=== PATIENT | male | born 1985 | race Caucasian/White ===

== ENCOUNTER 2019-11-15 20:13 | Emergency (ER) | payer SELFPAY ==
[2019-11-15 20:28] VITALS: BP 133/81; PULSE 102; RESP 18; TEMP 37.9; O2SAT 98; BMI 26.2
[2019-11-15 20:41] VITALS: BP 126/73; PULSE 94; RESP 16; O2SAT 98
--- NOTE | 2019-11-15 20:48 | XR_ITS ---
WS: [id number] LUMBAR SPINE: 3 VIEWS TECHNIQUE: AP, lateral and L5-S1 spot. HISTORY: fall COMPARISON: None available. Mild LEFT curvature lumbar spine. Posterior alignment is normal. No fracture. No loss of disc space or vertebral body height. SI joints are symmetric bilaterally. No soft tissue abnormalities. XR/XR lumbar spine 2-3V* [id number] IMPRESSION: Mild LEFT convex curvature. No fracture.
--- NOTE | 2019-11-15 20:49 | ED_ITS ---
HPI - Fall General: Chief Complaint: Fall Stated Complaint: fall Time Seen by Provider: 11/15/19 20:45 Source: patient Mode of arrival: ambulatory Limitations: no limitations History of Present Illness: HPI Narrative: 34-year-old male states he slipped in his garage this morning and fell on a propane tank. He states that a propane tank hit him in the lower back and has had pain since then. He states it is worsened throughout the day and is mainly on the lower right side. He states pain is sharp in nature and rates it a 7 out of 10. Patient is able to ambulate. States it is improved with rest and worsened with ambulation. MD complaint: fall Onset (ago): hour(s) Fall from: standing Place fall occurred: home Loss of consciousness: None Associated symptoms-after fall: Denies abdominal pain, chest pain, headache(s) or neck pain Review of Systems Const: Denies: fever(s), chills, body aches or change in appetite Eyes: Denies: blurry vision or eye discomfort ENMT: Denies: throat pain or dental pain Card: Denies: chest pain Resp: Denies: dyspnea GI: Denies: abdominal pain, nausea, vomiting or diarrhea : Denies: dysuria Musc: Denies: neck pain or back pain Skin/Breast: Denies: rash Neuro: Denies: headache(s) Psych: Denies: depression Abdirashid/Lymph: Denies: easy bruising All/Imm: Denies: urticaria PFSH ED PFSH: Social History Smoking and tobacco status: former smoker Physical Exam Const: COMMON NORMALS: no acute distress, patient oriented x3 and healthy appearing HENMT: COMMON NORMALS: normocephalic and atraumatic HEAD & SCALP: normocephalic and atraumatic Eye: COMMON NORMALS: Equal, round and reactive pupils present and EOMs intact bilaterally PUPIL: Yes Equal, round and reactive pupils present Neck/C-Spine: COMMON NORMALS: full ROM and supple Chest: COMMONS NORMALS: normal inspection of the chest and normal palpation of entire chest wall Resp: COMMON NORMALS: normal respiratory effort, No retractions, No use of accessory muscles and clear to auscultation bilaterally AUSCULTATION: clear to auscultation bilaterally Cardio: COMMON NORMALS: regular rate, regular rhythm and No murmurs present (Cardio) RATE: regular rate RHYTHM: regular rhythm GI: COMMON NORMALS: Normal to inspection, nondistended, normoactive bowel sounds present, Soft to palpation, non-tender and no masses PALPATION: Yes Soft to palpation Back/Pelvis: OTHER: Tender over right lower lumbar region. No midline tenderness. Extremity: COMMON NORMALS: normal to inspection and full ROM Neuro: COMMON NORMALS: patient oriented x3, moves all extremities and no focal motor deficits Psych: COMMON NORMALS: mental status grossly normal, Normal thought process present and cooperative THOUGHT PROCESS: Normal thought process present Skin: COMMON NORMALS: no rashes or lesions noted and no wounds GENERAL SKIN EXAM: no rashes or lesions noted Course Vital Signs: Vital signs: Vital Signs Temperature 100.2 F H 11/15/19 20:28 Pulse Rate 89 11/15/19 21:32 Respiratory Rate 16 11/15/19 21:32 Blood Pressure 136/74 11/15/19 21:32 Pulse Oximetry 98 11/15/19 21:32 MDM - Fall MDM Narrative: Medical decision making narrative: Patient presents here with lumbar contusion from a fall. X-ray shows no fracture and his exam here is benign. Patient is stable for discharge and is to follow-up with his primary care doctor in 3 to 5 days and return if worsening. Imaging Data^: xr lumbar spine: Attestation: I personally reviewed and interpreted this imaging study as follows: My impression: no acute abnormality Discharge Plan Discharge Patient Disposition: Home, Self-Care Clinical Impression: Lumbar contusion Qualifiers: Encounter type: initial encounter Qualified Code(s): S30.0XXA - Contusion of lower back and pelvis, initial encounter Fall Qualifiers: Encounter type: initial encounter Qualified Code(s): W19.XXXA - Unspecified fall, initial encounter Condition: Stable Prescriptions: New Robaxin-750 750 mg tablet 750 mg PO Q6H Qty: 30 RF: 0 Naprosyn 500 mg tablet 500 mg PO BID PRN (Reason: pain) Qty: 20 RF: 0 No Action Multiple Vitamins Tablet 1 tab PO DAILY RF: 0 biotin 5,000 mcg Tablet,Disintegrating 10,000 mcg PO DAILY RF: 0 Discharge Orders: Discharge Order (Routine); Ordered 11/15/19 Ordered By: Jevon Martinez Discharge Diet: Advance as tolerated Discharge Activity: Resume usual activity Patient Instructions: Low Back Strain (ED) Coding Level of Care Code ED Refrigeration Manager for Chg Fwd Exam Comprehensive
[2019-11-15] MEDS: HYDROcodone-acetaminophen 7.5-325 mg Tablet 1 TAB PO (21:30)
[2019-11-15 21:32] VITALS: BP 136/74; PULSE 89; RESP 16; O2SAT 98
== END 2019-11-15 21:40 | disposition home or self-care (01) ==
PROVIDERS: Emergency Provider Emergency Medicine
DX: S30.0XXA Contusion of lower back and pelvis, initial encounter (principal); W01.198A Fall on same level from slipping, tripping and stumbling with subsequent striking against other object, initial encounter; Z87.891 Personal history of nicotine dependence
CPT/HCPCS: 12345; 72100; 99282; 99283

== ENCOUNTER 2019-11-29 15:17 | Emergency (ER) | payer SELFPAY ==
[2019-11-29 15:32] VITALS: BP 105/72; PULSE 125; RESP 18; TEMP 37.7; O2SAT 98; BMI 25.1
--- NOTE | 2019-11-29 17:26 | USCV_ITS ---
Lemuel Phillips Age: 34 Gender: M : 1985 Exam Date: 11/29/2019 19:18 Ordering Phys: Esteban May Technologist: Jeffry Hernandez Exam Location: [facility] [place] Indication: RT FOURT DIGIT BLUE Findings NORMAL TRI PHASIC FLOW IN RT RAD AND ULNAR, THERE IS NO FLOW IN RT FORTH DIGIT COMPARED TO REST OF DIGITS. Normal Doppler waveforms and Doppler velocities in these arteries Conclusions No Doppler flow signals in the right fourth digit, suggesting occlusion of the artery Normal Doppler flow pattern in the right ulnar, radial, palmar arch and the rest of the digital arteries Dr Jina Cat MD [facility] (Electronically Signed) Final Date: 30 Nov 2019 19:46 S
--- NOTE | 2019-11-29 17:28 | XR_ITS ---
WS: [id number] RIGHT HAND: 3 VIEW(S) TECHNIQUE: PA, oblique and lateral. HISTORY: pain in right 4th digit COMPARISON: None available. No acute fracture or dislocation. No soft tissue or bone abnormality. XR/XR hand RT min 3V* [id number] IMPRESSION: Normal RIGHT hand.
--- NOTE | 2019-11-29 17:29 | ED_ITS ---
HPI - General Adult General: Chief complaint: General Medical Stated complaint: RIGHT RING FINGER INJURY Time Seen by Provider: 11/29/19 17:26 History of Present Illness: HPI narrative: Patient is a 34-year-old male comes to the ED with pain and right ring finger. Patient has a past medical history of factor V Leiden. patient states that 3 days ago he was having a dream that something was biting his right ring finger and when he woke up he noticed his finger had some bruising on it. Patient states that he has a dog but he sleeps with the door closed and the dog was not able to access his room at night. He denies any other event or injury or accident that could have caused pain and bruising in right ring finger. Over the past couple days the finger is gotten more painful and has become more blue and the tip of the finger is cold. He describes the pain as throbbing and then having episodes. Sharp burning pain on his finger. The skin today is blue and then has some whiteness to it as well. He is taken ibuprofen to help with pain. Associated symptoms: Deny chest pain, dyspnea, headache(s), nausea, rash, palpitations or vomiting Review of Systems Const: Denies: fever(s), chills or fatigue Eyes: Denies: change in vision or eye discomfort ENMT: Denies: throat pain, odynophagia, nasal discharge or nasal congestion Card: Denies: chest pain, palpitations, edema, swelling of feet/ankles, dyspnea on exertion or orthopnea Resp: Denies: dyspnea, productive cough or non-productive cough GI: Denies: abdominal pain, nausea, vomiting, diarrhea, constipation or hematochezia : Denies: flank pain, difficulty urinating, dysuria or hematuria Musc: Reports: extremity pain (right ring finger-pain, ecchymosis and cold from the DIP joint to the tip of finger.); Denies: neck pain, back pain or extremity swelling Skin/Breast: Denies: rash or new lesions Neuro: Denies: headache(s), numbness in extremities or weakness in extremities [facility] ED PFSH: Medical History (Updated 11/29/19 @ 20:36 by RUBEN Dahl) Factor V Leiden Social History Smoking and tobacco status: former smoker Physical Exam Const: COMMON NORMALS: patient oriented x3 and alert GENERAL APPEARANCE: cooperative and comfortable HENMT: COMMON NORMALS: normocephalic HEAD & SCALP: normocephalic MOUTH: Normal oral and palatal mucosa present THROAT: posterior oropharynx normal and uvula midline Eye: COMMON NORMALS: Equal, round and reactive pupils present PUPIL: Yes Equal, round and reactive pupils present Neck/C-Spine: COMMON NORMALS: supple GENERAL: Yes normal visual inspection Resp: COMMON NORMALS: normal respiratory effort, No retractions, No use of accessory muscles and clear to auscultation bilaterally AUSCULTATION: clear to auscultation bilaterally Cardio: COMMON NORMALS: regular rate, regular rhythm, S1 normal heart sound present, S2 normal heart sound present, No gallops present (Cardio), No clicks present (Cardio), No murmurs present (Cardio) and Peripheral pulses 2+ throughout RATE: regular rate RHYTHM: regular rhythm HEART SOUNDS: S1 normal heart sound present and S2 normal heart sound present PERIPHERAL PULSES: Peripheral pulses 2+ throughout GI: COMMON NORMALS: Normal to inspection, nondistended, normoactive bowel sounds present, Soft to palpation, non-tender and no masses PALPATION: Yes Soft to palpation : COMMON NORMALS: Yes no CVA tenderness BLADDER/KIDNEY EXAM: Yes no CVA tenderness Back/Pelvis: COMMON NORMALS: no CVA tenderness Extremity: COMMON NORMALS: no pedal edema GENERAL: Yes normal exam except as noted RIGHT UPPER EXTREMITY: Yes hand & digits (Right ring finger(4th digit)) Right hand and digits: Yes inspection (Finger has ecchymosis and is white from the DIP joint to the finger. Nail has ecchymosis under it as well.), Yes palpation (tender from dip joint to tip-cool to touch), Yes ROM exam (full) and Yes neurovascular exam (finger tip is cold and cap refill is abnormal) Neuro: COMMON NORMALS: patient oriented x3 and moves all extremities SENSORIUM/ORIENTATION: Yes alert Skin: COMMON NORMALS: no rashes or lesions noted (except for what is described on right ring finger in extremity section above.) GENERAL SKIN EXAM: no rashes or lesions noted (except for what is described on right ring finger in extremity section above.) and dry skin Course Consultations: Consultation #1: I contacted Dr. Colón the vascular surgeon at [facility] in [facility]. I discussed the patient's case and ultrasound findings. Dr. Colón said he will see patient at his clinic tomorrow morning at 8:30 AM. He told me to start patient on an anticoagulant. Vital Signs: Vital signs: Vital Signs Temperature 100 F H 11/29/19 15:32 Pulse Rate 74 11/29/19 18:41 Respiratory Rate 18 11/29/19 20:20 Blood Pressure 128/95 11/29/19 18:41 Pulse Oximetry 98 11/29/19 20:20 MDM - General Adult MDM Narrative: Medical decision making narrative: Patient is a 34-year-old female who comes to the ED with right fourth digit pain. Patient has a past medical history of factor V Leiden. Patient's fourth digit on right hand was blue and cold. cap Refill was abnormal. X-ray right hand showed no acute findings. Arterial duplex ultrasound of upper right extremity showed no arterial blood flow to the fourth digit. All other blood throughout hands and fingers was normal. I contacted vascular surgeon Dr. Colón at [facility] in [facility] and told about the patient's case. He recommended me putting patient on anticoagulant and he will see him in his clinic tomorrow at 8:30 AM. Patient was given all contact information for Dr. Colón office. Patient was given a shot of Lovenox while here in the ED and sent home with a prescription for Lovenox. Patient will follow-up at Dr. Colón's clinic tomorrow at 8:30 AM. Imaging Data^: US Vascular: Attestation: I personally reviewed and interpreted this imaging study as follows: Radiologist's impression: CV arterial duplex of upper right extremity showed no arterial flow to ring finger of right hand. All other major arteries and blood flow throughout the rest of the fingers and hand were patent and normal. Xray Ortho: Attestation: I personally reviewed and interpreted this imaging study as follows: My impression: Right hand x-ray?no acute fracture findings seen. Pending final radiology report. Discharge Plan Discharge Patient Disposition: Home, Self-Care Clinical Impression: Digital arterial occlusive disease Condition: Stable Prescriptions: New Lovenox 80 mg/0.8 mL syringe 80 mg SUBCUT Q12H Qty: 8 RF: 0 No Action multivitamin [Multiple Vitamins] Tablet 1 tab PO DAILY RF: 0 biotin 5,000 mcg Tablet,Disintegrating 10,000 mcg PO DAILY RF: 0 Discharge Orders: Discharge Order (Routine); Ordered 11/29/19 Ordered By: Esteban May Discharge Diet: Regular Discharge Activity: Resume usual activity Activity Restrictions/Additional Instructions: Go to Dr. Colón tomorrow at 8:30 AM. Address is [address] [place] [id number]. Phone number [phone]. Also sending you home with a prescription for Lovenox. Discussed with the doctor tomorrow anticoagulation medication options. I can only supply you with a prescription for 5 days worth of Lovenox we will need to see PCP for additional prescriptions or doctor tomorrow might give you a prescription for an anticoagulant. Follow- up with your PCP within a week for reevaluation. Discharge Date/Time: 11/29/19 20:32 Coding Level of Care Code ED Garbage Pick Up Worker for Joe Quintero Exam Comprehensive
[2019-11-29] MEDS: HYDROcodone-acetaminophen 7.5-325 mg Tablet 1 TAB PO (17:51)
[2019-11-29 18:41] VITALS: BP 128/95; PULSE 74; RESP 18; O2SAT 98
[2019-11-29 20:20] VITALS: RESP 18; O2SAT 98
[2019-11-29] MEDS: enoxaparin 80 mg/0.8 mL Syringe SUBCUT (20:20)
[2019-11-29] MEDS: morphine 4 mg/mL SDV 1 mL IM (20:20)
== END 2019-11-29 20:32 | disposition home or self-care (01) ==
PROVIDERS: Emergency Provider Physician Assistant
DX: I70.90 Unspecified atherosclerosis (principal); Z87.891 Personal history of nicotine dependence; D68.51 Activated protein C resistance
CPT/HCPCS: 12345; 73130; 93931; 96372; 99281; 99283; J1650; J2270

== ENCOUNTER 2019-11-30 14:38 | Emergency (ER) | payer SELFPAY ==
[2019-11-30 15:15] VITALS: BP 92/58; PULSE 113; RESP 18; TEMP 37.2; O2SAT 97; BMI 25.1
[2019-11-30] MEDS: sodium chloride 0.9% 1,000 ML 999 ML IV (16:30)
--- NOTE | 2019-11-30 16:33 | W.ED.EXTPRO ---
HPI - Extremity Problem General: Chief complaint: Extremity Problem,Nontraumatic Stated complaint: decreased bloodflow to fingers Time Seen by Provider: 11/30/19 16:09 History of Present Illness: HPI Narrative: This patient is a 34-year-old male who presents today with blue painful fingers on his right hand. He was seen here yesterday evening with the same complaint but at that time it was only his fourth finger. It now involves his third and fifth finger and questionably part of his hand as well. He denies any injury or trauma. He said he woke up with these symptoms about 4 days ago. He has a history of factor V Leiden deficiency. He had a arterial ultrasound yesterday which reportedly showed no blood flow to the fourth finger. I am still trying to find the report from that study. He was given Lovenox in the ER and given a prescription of it which she has not been able to fill. The PA who saw him spoke with a vascular surgeon in [place] who said he would see him in the office at 830 this morning. The patient was not able to get a ride and presents to the ED this afternoon. He also reports that he has not been feeling well for about 2 weeks. He has had some weight loss, looks pale, has had a sore throat. He denies cough, fever, night sweats, vomiting and diarrhea, urinary symptoms. MD Complaint: extremity pain Onset (ago): day(s) (4) Associated symptoms: Deny chest pain, fever(s) or rash Review of Systems General: Reports: 10 or more systems reviewed and unremarkable except in HPI and below Const: Reports: change in appetite, change in weight, fatigue and malaise; Denies: fever(s) or chills Eyes: Denies: change in vision ENMT: Denies: odynophagia Card: Denies: chest pain or swelling of feet/ankles Resp: Denies: dyspnea, productive cough or non-productive cough GI: Denies: abdominal pain, nausea or vomiting : Denies: flank pain Musc: Reports: extremity pain; Denies: neck pain or back pain Skin/Breast: Denies: rash Neuro: Denies: headache(s), numbness in extremities or weakness in extremities Endo: Reports: tired all the time Abdirashid/Lymph: Denies: easy bruising or easy bleeding PFS ED PFSH: Medical History Factor V Leiden Social History Smoking and tobacco status: former smoker Physical Exam Const: COMMON NORMALS: no acute distress (Appears uncomfortable), patient oriented x3, no limitations and alert GENERAL APPEARANCE: comfortable NUTRITIONAL APPEARANCE: thin (He does appear somewhat gaunt and pale) HENMT: HEAD & SCALP: normal to inspection FACE & SINUS: normal facial exam Eye: GENERAL EYE: appearance normal, both eyes and all related structures Neck/C-Spine: COMMON NORMALS: supple, no meningeal signs and no JVD Chest: COMMONS NORMALS: normal inspection of the chest Resp: COMMON NORMALS: normal respiratory effort, No use of accessory muscles and clear to auscultation bilaterally AUSCULTATION: clear to auscultation bilaterally Cardio: COMMON NORMALS: no JVD, regular rate, regular rhythm and No murmurs present (Cardio) RATE: regular rate RHYTHM: regular rhythm GI: COMMON NORMALS: Normal to inspection, nondistended, normoactive bowel sounds present, Soft to palpation and non-tender INSPECTION: Yes normal to inspection AUSCULTATION: Yes normoactive bowel sounds PALPATION: Yes Soft to palpation Back/Pelvis: COMMON NORMALS: thoracic and lumbar spine normal to inspection Extremity: COMMON NORMALS: normal to inspection (Except as noted) RIGHT UPPER EXTREMITY: Yes hand & digits OTHER: The end of the fourth finger on the right hand is blue and cool to the touch. Is also quite painful to the touch. The end of the fifth finger now has a similar appearance and the third finger medially also has ecchymotic areas. There may be some ecchymosis along the hyperthenar emesis as well. Neuro: COMMON NORMALS: patient oriented x3, moves all extremities, no focal motor deficits and no sensory deficits noted SENSORIUM/ORIENTATION: Yes alert MENINGEAL SIGNS: Yes no meningeal signs Psych: COMMON NORMALS: mental status grossly normal, cooperative and normal affect Skin: COMMON NORMALS: no rashes or lesions noted and turgor normal GENERAL SKIN EXAM: no rashes or lesions noted and turgor normal Course ED course: Patient is presenting for a second time with an ischemic finger which is now turning into 3 ischemic fingers. He had follow-up arranged this morning at 830 but did not get there. He is coming in hours later to our ER. He has not gotten his Lovenox. He was given a dose of Lovenox here and have established an IV and obtained labs. He was given a liter fluid and pain medicine as well. I will attempt to get him transferred to [facility] by ambulance. Consultations: Consultation #1: Patient is accepted by Dr. Estrada from vascular surgery at [facility]. He requested the patient be sent to the ER and I spoke to Dr. Minor who is the accepting physician for the ER. Dr. Estrada requested anticoagulation and the patient has already been given Lovenox. He is also getting fluids and pain medicine. Dr. Estrada requested a CTA of the chest but only if it does not delay transfer because we want to get him there as quickly as possible. Unfortunately her back is not flying today because of the weather. We are calling [facility] with a life threat transport. Time: 17:38 Vital Signs: Vital signs: Vital Signs Temperature 98.9 F 11/30/19 15:15 Pulse Rate 104 H 11/30/19 16:51 Respiratory Rate 16 11/30/19 16:51 Blood Pressure 104/78 11/30/19 16:51 Pulse Oximetry 99 11/30/19 16:51 MDM - Extremity (Nontraumatic) Lab Data: Labs: Lab Results 11/30/19 11/30/19 11/30/19 Range/Units 17:23 17:23 17:23 WBC 30.9 H* (4.0-10.0) 10^3/ uL RBC 3.46 L (4.1-5.3) 10^6/u L Hgb 10.2 L (11.7-16.6) g/dL Hct 32.0 L (42.0-52.0) % MCV 92.5 (80-94) fL MCH 29.5 (28.0-34.0) pg MCHC 31.9 (30.0-36.0) g/dL RDW 13.2 (12.1-15.1) % Plt Count 820 H (130-400) 10^3/c mm MPV 9.3 (7.4-10.4) fL Neut % (Auto) 85.0 % Lymph % (Auto) 4.1 % [place] % (Auto) 7.9 % Eos % (Auto) 0.3 % Baso % (Auto) 0.2 % Neut # (Auto) 26.3 H (1.8-7.7) 10^3/u L Lymph # (Auto) 1.3 (0.8-4.8) 10^3/u L [place] # (Auto) 2.4 H (0.2-0.9) 10^3/u L Eos # (Auto) 0.1 (0.0-0.8) 10^3/u L Baso # (Auto) 0.1 (0.0-0.1) 10^3/u L Nucleated RBC % (a uto) 0 % Nucleated RBCs # 0.0 /100WBC PT 16.40 H (10.5-13.3) SECO NDS INR 1.27 H (0.8-1.2) APTT 27.0 (23.9-36.7) SECO NDS D-Dimer 3.26 H (0-0.59) ug/mIFE U Sodium 132 L (136-145) mmol/L Potassium 3.8 (3.5-5.1) mmol/L Chloride 92 L (98-107) mmol/L Carbon Dioxide 24 (22-29) mmol/L Anion Gap 19.8 H (5-19) BUN 16 (6-20) mg/dL Creatinine 0.7 (0.7-1.2) mg/dL GFR Calculation 130.7 H (90-130) mL/min Glucose 121 H (65-115) mg/dL Calculated Osmolal ity 272 L (285-295) mOsm/k g Calcium 9.4 (8.5-10.5) mg/dL Total Bilirubin 0.8 (0.15-1.2) mg/dL AST 87 H (0-40) U/L ALT 235 H (0-41) U/L Alkaline Phosphata se 312 H (40-130) IU/L Total Protein 7.5 (6.6-8.7) g/dL Albumin 3.0 L (3.5-5.2) g/dL Globulin 4.5 (1.3-4.6) g/dL Discharge Plan Discharge Patient Disposition: Transfer to ED Prescriptions: No Action multivitamin [Multiple Vitamins] Tablet 1 tab PO DAILY RF: 0 enoxaparin [Lovenox] 80 mg/0.8 mL syringe 80 mg SUBCUT Q12H Qty: 8 RF: 0 ibuprofen 200 mg Tablet 600 mg PO PRN RF: 0 biotin 1 cap PO DAILY RF: 0 Discharge Date/Time: 11/30/19 18:10 Coding Level of Care Code ED Aws Solution Architect for Joe Fwd Exam Comprehensive
[2019-11-30 16:51] VITALS: BP 104/78; PULSE 104; RESP 16; O2SAT 99
[2019-11-30] MEDS: ondansetron 2 mg/ML SDV 2 mL 4 MG IVP (17:24)
[2019-11-30] MEDS: enoxaparin 80 mg/0.8 mL Syringe SUBCUT (17:24)
[2019-11-30] MEDS: morphine 4 mg/mL SDV 1 mL IVP (17:24)
[2019-11-30 17:29] LABS: Basophils # 0.1 10^3/uL (0.0-0.1); Basophils % 0.2 %; Eosinophils # 0.1 10^3/uL (0.0-0.8); Eosinophils % 0.3 %; Hemoglobin 10.2 g/dL (11.7-16.6); Lymphocytes # 1.3 10^3/uL (0.8-4.8); Lymphocytes % 4.1 %; Mean Corpuscular HGB Conc 31.9 g/dL (30.0-36.0); Mean Corpuscular Hemoglobin 29.5 pg (28.0-34.0); Mean Corpuscular Volume 92.5 fL (80-94); Mean Platelet Volume 9.3 fL (7.4-10.4); Monocytes # 2.4 10^3/uL (0.2-0.9); Monocytes % 7.9 %; Neutrophils # 26.3 10^3/uL (1.8-7.7); Nucleated Red Blood Cells % 0 %; Platelet Count 820 10^3/cmm (130-400); Red Blood Count 3.46 10^6/uL (4.1-5.3); Red Cell Distribution Width 13.2 % (12.1-15.1)
--- NOTE | 2019-11-30 17:33 | ECG_ITS ---
Measurements Intervals [place] Rate: 101 P: 34 OR: 153 QRS: 6 QRSD: 94 T: 2 QT: 336 QTc: 436 SINUS TACHYCARDIA POSSIBLE ANTERIOR MYOCARDIAL INFARCTION [30 ms Q WAVE IN V3/V4, OR R < 0.2 mV IN V4], PROBABLY OLD ABNORMAL RHYTHM ECG INTERPRETATION BASED ON A DEFAULT AGE OF 40 YEARS No previous ECG available for comparison Electronically Signed On 12-01-2019 18:52:54 CDT by Renetta Kumar M.D. [email or web address]
[2019-11-30 17:36] LABS: White Blood Count 30.9 10^3/uL (4.0-10.0)
[2019-11-30 17:48] LABS: INR 1.27 (0.8-1.2)
[2019-11-30 17:53] LABS: Alanine Aminotransferase 235 U/L (0-41); Alkaline Phosphatase 312 IU/L (40-130); Anion Gap 19.8 (5-19); Aspartate Amino Transferase 87 U/L (0-40); Blood Urea Nitrogen 16 mg/dL (6-20); Calcium 9.4 mg/dL (8.5-10.5); Carbon Dioxide 24 mmol/L (22-29); Chloride 92 mmol/L (98-107); Globulin 4.5 g/dL (1.3-4.6); Glomerular Filtration Rate 130.7 mL/min (90-130); Glucose 121 mg/dL (65-115); Osmolality Calculated 272 mOsm/kg (285-295); Potassium 3.8 mmol/L (3.5-5.1); Sodium 132 mmol/L (136-145); Total Bilirubin 0.8 mg/dL (0.15-1.2); Total Protein 7.5 g/dL (6.6-8.7)
[2019-11-30 17:58] LABS: D Dimer 3.26 ug/mIFEU (0-0.59)
--- NOTE | 2019-11-30 18:17 | PC.NURSE ---
attemted to call report 3 times each time I got a recording which stated the call could not be taken at this time
--- NOTE | 2019-11-30 19:47 | PC.NURSE ---
I was finally able to call report to Chintan AGUILAR in the ER
== END 2019-11-30 18:10 ==
PROVIDERS: Emergency Provider Emergency Medicine
DX: M79.641 Pain in right hand (principal); Z87.891 Personal history of nicotine dependence; D68.51 Activated protein C resistance
CPT/HCPCS: 12345; 80053; 85025; 85378; 85610; 85730; 93005; 96361; 96372; 96374; 96375; 99282; 99285; J1650; J2270; J2405; J7030